=== PATIENT | female | born 1985 | race Caucasian/White ===

== ENCOUNTER → 2017-12-22 | Outpatient (CLI) | payer OTHER | LOC: HPND 07:59 | PROVIDERS: ATTEND Obstetrics & Gynecology | DX: O35.0XX0 Maternal care for (suspected) central nervous system malformation in fetus, not applicable or unspecified (principal) | CPT/HCPCS: 76815 ==

== ENCOUNTER → 2017-12-23 | Outpatient (CLI) | payer OTHER | LOC: HPND 07:39 | PROVIDERS: ATTEND Obstetrics & Gynecology | DX: O35.0XX0 Maternal care for (suspected) central nervous system malformation in fetus, not applicable or unspecified (principal) | CPT/HCPCS: 36415; 76811; 76817 ==

== ENCOUNTER → 2018-01-06 | Outpatient (CLI) | payer OTHER | LOC: HPND 08:12 | PROVIDERS: ATTEND Obstetrics & Gynecology | DX: O35.0XX0 Maternal care for (suspected) central nervous system malformation in fetus, not applicable or unspecified (principal) | CPT/HCPCS: 76815 ==

== ENCOUNTER → 2018-01-27 | Outpatient (CLI) | payer OTHER | LOC: HPND 11:11 | PROVIDERS: ATTEND Obstetrics & Gynecology | DX: O35.0XX0 Maternal care for (suspected) central nervous system malformation in fetus, not applicable or unspecified (principal) | CPT/HCPCS: 76816 ==